=== PATIENT | female | born 1995 | race African-American/Black ===

== ENCOUNTER 2018-03-23 06:34 | Emergency (ER) | payer MEDICAID ==
[~2018-03-23] VITALS: Ht 157.5 cm; Wt 86.0 kg
[2018-03-23] MEDS ORDERED: IBUPROFEN 600MG TABLET PO ONE (07:45)
[2018-03-23 09:45] VITALS: BP 121/76
== END 2018-03-23 10:41 | disposition home or self-care (01) ==
LOC: ER 06:34
DX: J02.9 Acute pharyngitis, unspecified (principal); F12.10 Cannabis abuse, uncomplicated
CPT/HCPCS: 81025; 87070; 87430; 99284; Z7610